=== PATIENT | female | born 1985 | race Caucasian/White ===

== ENCOUNTER 2024-12-25 19:20 | Emergency (ER) | payer SELFPAY ==
[~2024-12-25] VITALS: Ht 154.9 cm; Wt 62.5 kg
[2024-12-25 19:37] VITALS: TEMP 36.9; O2SAT 100
[2024-12-25 22:25] LABS: BASOPHILS % 0.4 % (0.0-2.0); EOSINOPHILS % 0.2 % (0.0-5.0); HEMATOCRIT. 39.6 % (36.0-48.0); HEMOGLOBIN. 13.4 g/dL (12.0-16.0); LYMPHOCYTES % 23.2 % (20.0-50.0); MEAN PLATELET VOLUME 9.1 fl (7.4-10.4); MONOCYTES % 4.5 % (2.0-8.0); NEUTROPHILS % 71.7 % (40.0-76.0); PLATELET 275 x1000/uL (130-400); RED BLOOD CELL COUNT 4.52 mill/uL (4.2-5.4); RED CELL DISTRIBUTION WIDTH 13.3 % (11.6-14.6)
[2024-12-25 22:37] LABS: HCG SCREEN NEGATIVE
[2024-12-25 22:41] LABS: CREATININE 0.6 mg/dL (0.6-1.0)
[2024-12-25 22:42] LABS: UREA NITROGEN BLOOD < 5 mg/dL (9-23)
[2024-12-25 23:20] LABS: TROPONIN I HIGH SENSITIVITY < 4 ng/L (3.0-34)
[2024-12-25 23:41] LABS: TROPONIN I HIGH SENSITIVITY < 4 ng/L (3.0-34)
[2024-12-26 00:08] VITALS: BP 118/62; PULSE 80; RESP 15; O2SAT 98
== END 2024-12-26 00:13 | disposition home or self-care (01) ==
LOC: ER 19:20
DX: R07.9 Chest pain, unspecified (principal); Z98.890 Other specified postprocedural states
CPT/HCPCS: 36415; 71045; 80048; 84484; 84703; 85025; 93005; 99285